=== PATIENT | male | born 1955 | race Caucasian/White ===

== ENCOUNTER 2017-01-15 11:07 | Day surgery (SDC) | payer BC ==
[2017-01-13 11:46] LABS: BASOPHILS 0.4 %; BASOPHILS ABSOLUTE 0.03 10/3/uL (0.0-0.16); EOSINOPHILS 3.9 %; EOSINOPHILS ABSOLUTE 0.28 10/3/uL (0.0-0.53); HEMATOCRIT 38.3 % (40.0-51.0); HEMOGLOBIN 13.1 g/dL (13.6-17.8); IMMATURE GRANULOCYTES 0.1 %; IMMATURE GRANULOCYTES ABSOLUTE 0.01 10/3/uL (0.0-0.11); LYMPHOCYTES 27.3 %; LYMPHOCYTES ABSOLUTE 1.97 10/3/uL (0.67-4.30); MEAN CORPUS HGB CONC 34.2 g/dL (32.0-36.0); MEAN CORPUSCULAR HEMOGLOB 31.3 pg (26.0-34.0); MEAN CORPUSCULAR VOLUME 91.4 fL (80-100); MEAN PLATELET VOLUME 12.1 fL (9.2-13.0); MONOCYTES 6.9 %; NEUTROPHILS 61.4 %; NEUTROPHILS ABSOLUTE 4.42 10/3/uL (2.02-8.40); PLATELET COUNT 196 10/3/uL (150-400); RBC DISTRIBUTION WIDTH 12.5 % (12.0-16.0); RED CELL COUNT 4.19 10/6/uL (4.7-6.1); WHITE BLOOD CELLS 7.2 10/3/uL (4.5-10.5)
[2017-01-13 11:47] LABS: MANUAL DIFF NO %
[2017-01-13 12:00] LABS: BUN (BLOOD UREA NITROGEN) 20 MG/DL (6-23); CALCIUM, SERUM 9.3 MG/DL (8.5-10.4); CHLORIDE, SERUM 106 MMOL/L (96-112); CO2 (CARBON DIOXIDE) 31 MMOL/L (24-34); GFR AFRICAN AMERICAN 94 ML/MIN (>=60); GFR NON AFRICAN AMERICAN 81 ML/MIN (>=60); GLUCOSE, SERUM 103 MG/DL (60-99); POTASSIUM, SERUM 3.9 MMOL/L (3.5-5.3); SODIUM, SERUM 141 MMOL/L (135-148)
--- NOTE | ~2017-01-15 | OP ---
Record Of Operation [facility] [address] [place]. [address] NAME: CARLTON DUBOSE : 57 STATUS : [facility]#: [id number] AGE: 61 ADM/REG DATE : 01/15/17 MR#: [id number] REPORT SERV DATE: 01/16/17 DICTATED BY: ОЛЕГ GAR DATE: 01/15/17 REPORT STATUS : Draft TRANSCRIBED BY: MODL DATE: 01/15/17 DATE OF PROCEDURE: 01/15/2017 PREOPERATIVE DIAGNOSIS: Bilateral spermatoceles. POSTOPERATIVE DIAGNOSES: 1. Large left hydrocele. 2. Large right spermatocele. SURGEON: Олег gar M.D. ANESTHESIA: General. COMPLICATIONS: None. DRAINS: None. SPECIMEN: 1. Right spermatocele. 2. Left hydrocele sac. INDICATION: Mr. Dubose is a 61-year-old with symptomatic scrotal swelling. Scrotal ultrasound suggests bilateral large spermatoceles. On the left, this has the size larger than a grapefruit. On the right side, the swelling is size of a lemon. He presents for bilateral spermatocelectomy. Intraoperative findings on the left were more consistent with a multiloculated hydrocele. Fluid on both sides was clear. TECHNIQUE: Ancef and gentamicin were given preop. He was brought to the operating room. General anesthesia was administered. Lower abdomen, penis, scrotum, and perineum were shaved, prepped, and draped in the supine position. An 8 cm midline scrotal incision was made. There was very large fluid collection on the left. The thickened dartos was divided. Tunica vaginalis was dissected bluntly and with Bovie. I delivered the hydrocele and scrotal contents through the incision. The testicle was entirely surrounded by fluid collection. I opened this apparent hernia sac anteriorly. Straw-colored fluid was evacuated. There was a second significant loculation. Both of these contained 300 mL or so of fluid. The redundant tunica vaginalis was excised from both. Due to the distorted anatomy, it was not feasible to heat to imbricate the remaining hydrocele and remaining tunica vaginalis posteriorly. Testicle appeared viable. Care was taken to avoid dissection along the spermatic cord. The hydrocele sac did extend anteriorly up toward the inguinal ring, but there was no inguinal hernia. I irrigated the wound to allow the testicle to retract back to anatomic position. It was sufficiently fixed in place and did not require orchiopexy. Next, the median subcu tissue was grasped with an Allis. I opened the right hemiscrotum through the same incision. There was minimal amount of hydrocele fluid on the right. The spermatocele was present above the normal appearing right testicle. Sharp dissection and Bovie were utilized to circumferentially mobilize the right spermatocele sac. This was attached to the mid point to the body of the epididymis at the neck of the Record Of Operation [facility] [id number] [place]. [address] NAME: CARLTON DUBOSE : 57 STATUS : [facility]#: [id number] AGE: 61 ADM/REG DATE : 01/15/17 MR#: [id number] REPORT SERV DATE: 01/16/17 DICTATED BY: ОЛЕГ GAR DATE: 01/15/17 REPORT STATUS : Draft TRANSCRIBED BY: HUE DATE: 01/15/17 hydrocele sac. This was clipped with a hemostat. The neck amputated and oversewn with 3-0 Vicryl. The wound was irrigated. The right testicle was allowed to retract back today in normal anatomic position. I closed the right and left dartos separately. I then closed the redundant significantly thickened dartos with two additional layers of running 2-0 Vicryl. The skin was closed with interrupted chromic. Scrotal support was applied. He will use scrotal support for 7 to 10 days. I will see him back in one month. MAXIMO/HUE Олег Gar M.D. / [id number] CC: Олег Gar M.D.
[~2017-01-15 11:07] MED LIST: CRESTOR20 MG PO; HYDROCHLOROT25 MG PO; LOP50 PO; PRILO PO; PRIN10 PO
== END 2017-01-15 18:48 | disposition home or self-care (01) ==
LOC: SDC 11:07
PROVIDERS: Urology
PROC: 0VBJ0ZZ Excision of Right Epididymis, Open Approach (ICD-10-PCS; 2017-01-15)
PROC: 0VBG0ZZ Excision of Left Spermatic Cord, Open Approach (ICD-10-PCS; principal; 2017-01-15 12:45)
DX: N43.3 Hydrocele, unspecified (principal); N43.41 Spermatocele of epididymis, single; I10 Essential (primary) hypertension; I25.2 Old myocardial infarction; E78.00 Pure hypercholesterolemia, unspecified; K21.9 Gastro-esophageal reflux disease without esophagitis; Z95.1 Presence of aortocoronary bypass graft; Z79.899 Other long term (current) drug therapy; Z98.42 Cataract extraction status, left eye; Z96.1 Presence of intraocular lens; Z87.891 Personal history of nicotine dependence
CPT/HCPCS: 80048; 85025; 88302; 88304; 88341; 88342; 93005; A9270-GY; J0690; J1170; J1580; J2250; J2270; J3010